=== PATIENT | male | born 1950 | race Caucasian/White ===

== ENCOUNTER 2016-03-05 07:47 | Day surgery (SDC) | payer BC ==
[~2016-03-05] VITALS: Ht 172.7 cm; Wt 61.4 kg
[2016-03-05 08:02] VITALS: BP 140/50; PULSE 64; RESP 20; TEMP 97.8; O2SAT 100
[2016-03-05] MEDS ORDERED: tumeric (08:37)
[2016-03-05] MEDS ORDERED: LUPR11.22 IM (08:37)
[2016-03-05] MEDS ORDERED: SIMV20TA PO (08:37)
[2016-03-05] MEDS ORDERED: MEGE20TA PO (08:37)
[2016-03-05] MEDS ORDERED: SILD20TA11 PO (08:37)
[2016-03-05] MEDS ORDERED: GARL1CAP (08:37)
[2016-03-05] MEDS ORDERED: BARLEY (08:37)
[2016-03-05] MEDS ORDERED: [UNRECOGNIZED DRUG - CODE] (08:37)
[2016-03-05] MEDS ORDERED: CRAN500C2 (08:37)
[2016-03-05] MEDS ORDERED: SODIUM CHLOR 0.9% 1000 ML IV SCH (09:15)
[2016-03-05] MEDS ORDERED: LIDOCAINE 1%/EPINEPHrine 1:100,000 SOLN 20 ML VIAL ONE (09:22)
[2016-03-05] MEDS ORDERED: fentaNYL CITRATE 250 MCG/5 ML AMP ONE (09:49)
[2016-03-05] MEDS ORDERED: MIDAZOLAM HCL 5 MG/5 ML VIAL ONE (09:49)
[2016-03-05 10:55] VITALS: BP 113/46; PULSE 55; RESP 18; TEMP 98; O2SAT 100
[2016-03-05 11:10] VITALS: BP 94/47; PULSE 59; RESP 16; O2SAT 99
[2016-03-05] MEDS ORDERED: oxyCODONE/ACETAMINOPHEN 5 MG/325 MG TAB PO PRN (11:30)
[2016-03-05 11:40] VITALS: BP 91/48; PULSE 60; RESP 18; O2SAT 98
[2016-03-05 12:10] VITALS: BP 100/52; PULSE 59; RESP 18; O2SAT 98
--- NOTE | 2016-03-05 12:15 | RADRPT ---
EXAM DATE/TIME: 03/05/2016 09:54 [facility] COMPARISON: No previous studies available for comparison. However, correlation was performed with outside PET bon e scan and pelvis MRI. INDICATIONS : Left ischial lesion. SEDATION TIME: 30 minutes BIOPSY SITE: Left ischium MEDICATION(S): 1.) 3.5 mg midazolam (Versed) IV 2.) 175 mcg fentanyl (Sublimaze) IV DEVICE(S): 1.) 12 gauge Bone biopsy needle MEDICAL HISTORY : None. SURGICAL HISTORY : None. ENCOUNTER: Initial ACUITY: 1 day PAIN SCORE: 0/10 LOCATION: Left pelvis A total of three core specimen(s) were obtained and sent to the laboratory for pathologic evaluation. PROCEDURE: 1. CT guided pelvic biopsy. 2. Conscious sedation with continuous EKG and oximetry monitoring. 3. EKG and oximetry remained stable throughout the procedure. Prior to the procedure informed consent was obtained. Any appropriate prior imaging studies were rev iewed. The left gluteal region was prepped in a sterile fashion. Full sterile technique was used, including cap, mask, sterile gloves and gown and a large sterile sheet. Hand hygiene and 2% chlorhexidine and /or betadine/alcohol prep was utilized per protocol for cutaneous antisepsis. The skin and subcutane ous tissues were infiltrated with local anesthetic solution. With CT guidance the sclerotic lesion in the left ischium was localized. Biopsy was performed using t he prescribed needle as above. Adequate hemostasis was obtained with compression at the puncture sit e. Follow-up CT scan reveals no hemorrhage or acute abnormality. There is a visible a lucent tract trave rsing the bone lesion. There is air in the adjacent soft tissue. The patient tolerated the procedure well and there were no complications. The patient was returned to the Radiology Outpatient Unit in stable condition. CONCLUSION: Uncomplicated CT guided biopsy of the left ischial sclerotic bone lesion. Fox Mcintyre MD on March 05, 2016 at 12:13 Board Certified Radiologist. This report was verified electronically.
[2016-03-05 12:40] VITALS: BP 106/55; PULSE 49; RESP 18; O2SAT 99
[2016-03-06] MEDS ORDERED: TURM500C PO (10:35)
[2016-04-24] MEDS ORDERED: ALPR.25 PO (09:29)
[2016-04-24] MEDS ORDERED: MEGE20TA PO (09:29)
[2016-04-24] MEDS ORDERED: SIMV20TA PO (09:29)
[2016-04-25] MEDS ORDERED: LUPR11.22 IM (06:47)
[2016-04-25] MEDS ORDERED: HYDR-3288 PO (09:43)
== END 2016-03-05 12:50 | disposition home or self-care (01) ==
LOC: MERGE 07:47 → HRAD 07:47 → HRIP 07:48 → EDSTATUS 08:00 → HRAD 12:50
PROVIDERS: ATTEND Radiology Radiation Oncology
DX: M89.8X8 Other specified disorders of bone, other site (principal)
CPT/HCPCS: 20225; 77012; 88307; 88311; 99152; J2250; J3010; J7030; 88305

== ENCOUNTER 2016-04-05 13:07 | Inpatient (IN) | payer BC ==
[~2016-04-05 13:07] MED LIST: BARLEY; CRAN500C2; GARL1CAP; LUPR11.22 IM; MEGE20TA PO; SILD20TA11 PO; SIMV20TA PO; TURM500C PO; [UNRECOGNIZED DRUG - CODE]
[2016-04-05 13:09] VITALS: BP 130/63; PULSE 57; RESP 25; TEMP 98.2; O2SAT 98
[2016-04-05 13:34] VITALS: O2SAT 100
[2016-04-05 13:44] LABS: I-STAT POTASSIUM 3.6 MMOL/L (3.5-4.9); I-STAT SODIUM 140 MMOL/L (138-146)
--- NOTE | 2016-04-05 13:44 | RADRPT ---
EXAM DATE/TIME: 04/05/2016 13:33 [facility] COMPARISON: No previous studies available for comparison. INDICATIONS : Trauma alert- fall from ladder. RADIATION DOSE: 56.35 CTDIvol (mGy) MEDICAL HISTORY : Unknown SURGICAL HISTORY : Unknown ENCOUNTER: Initial ACUITY: 1 day PAIN SCALE: 4/10 LOCATION: cranial TECHNIQUE: Multiple contiguous axial images were obtained of the head. Using automated exposure control and adj ustment of the mA and/or kV according to patient size, radiation dose was kept as low as reasonably a chievable to obtain optimal diagnostic quality images. FINDINGS: CEREBRUM: The ventricles are normal for age. No evidence of midline shift, mass lesion, hemorrhage or acute in farction. No extra-axial fluid collections are seen. POSTERIOR FOSSA: The cerebellum and brainstem are intact. The 4th ventricle is midline. The cerebellopontine angle i s unremarkable. EXTRACRANIAL: The visualized portion of the orbits is intact. SKULL: The calvaria is intact. No evidence of skull fracture. CONCLUSION: No acute disease. Karl Quinn MD FACR on April 05, 2016 at 13:42 Board Certified Radiologist. This report was verified electronically.
[2016-04-05 13:45] LABS: AUTOMATED NEUTROPHIL # 3.7 TH/MM3 (1.8-7.7); BASOPHIL # 0.1 TH/MM3 (0-0.2); BASOPHIL % 0.7 % (0.0-2.0); EOSINOPHIL # 0.4 TH/MM3 (0-0.4); HEMATOCRIT 40.1 % (39.0-51.0); HEMO FLAGS DIFF FINAL; LYMPH % 36.2 % (9.0-44.0); LYMPHOCYTE # 2.8 TH/MM3 (1.0-4.8); MEAN CELL VOLUME 94.5 FL (80.0-100.0); MEAN CORPUSCULAR HEMOGLOBIN 32.6 PG (27.0-34.0); MEAN CORPUSCULAR HGB CONC 34.5 % (32.0-36.0); MONO % 9.3 % (0.0-8.0); NEUT % 48.8 % (16.0-70.0); PLATELET COUNT 258 TH/MM3 (150-450); RED BLOOD COUNT 4.24 MIL/MM3 (4.50-5.90); RED CELL DISTRIBUTION WIDTH 12.6 % (11.6-17.2); WHITE BLOOD COUNT 7.6 TH/MM3 (4.0-11.0)
--- NOTE | 2016-04-05 13:47 | RADRPT ---
EXAM DATE/TIME: 04/05/2016 13:17 [facility] COMPARISON: No previous studies available for comparison. INDICATIONS : Trauma alert. Pain from fall off ladder. MEDICAL HISTORY : None. SURGICAL HISTORY : None. ENCOUNTER: Initial ACUITY: 1 day PAIN SCORE: 2/10 LOCATION: Bilateral chest FINDINGS: Granuloma seen in the right lung. Left lung is clear. There is no pneumothorax. I see no definite fracture. CONCLUSION: 1. Granuloma on the right. 2. Negative for pneumothorax. Karl Quinn MD FACR on April 05, 2016 at 13:41 Board Certified Radiologist. This report was verified electronically.
[2016-04-05 13:51] VITALS: BP 142/67; PULSE 47; RESP 16; O2SAT 98
[2016-04-05 13:58] LABS: APTT (PATIENT) 19.8 SEC (24.3-30.1); INTERNATIONAL NORMALIZED RATIO 0.9 RATIO; PROTHROMBIN TIME - PATIENT 10.2 SEC (9.8-11.6)
[2016-04-05] MEDS ORDERED: SODIUM CHLOR 0.9% 1000 ML INJ 1,000 ML IV ONE ×2 (14:00→14:15)
[2016-04-05] MEDS ORDERED: PROPOFOL 200 MG/20 ML AMP IV ONE (14:00)
[2016-04-05] MEDS ORDERED: PROPOFOL 1000 MG/100 ML INJ 100 ML ONE (14:02)
--- NOTE | 2016-04-05 14:16 | PD ---
Physical Exam Narrative I was asked by Dr. Payton to perform procedural sedation for closed reduction of right wrist fracture. See her note for further details. Data Data Last Documented VS Vital Signs Date Time Temp Pulse Resp B/P Pulse Ox O2 Delivery O2 Flow Rate FiO2 04/05/16 13:51 47 16 142/67 98 Room Air 04/05/16 13:34 2.00 04/05/16 13:09 98.2 Orders Fentanyl Inj (Fentanyl Inj) (04/05/16 13:26) I-Stat Profile (04/05/16 13:32) I-Stat Creatinine (04/05/16 13:32) Complete Blood Count With Diff (04/05/16 13:32) Prothrombin Time / Inr (Pt) (04/05/16 13:32) Act Partial Throm Time (Ptt) (04/05/16 13:32) Type And Screen (04/05/16 13:32) Chest, Single Ap (04/05/16 13:32) Pelvis, Ap Only (Routine) (04/05/16 13:32) Ct Brain W/O Iv Contrast(Rout) (04/05/16 13:32) Ct Cerv Spine W/O Contrast (04/05/16 13:32) Iv Access Insert/Monitor (04/05/16 13:32) Ecg Monitoring (04/05/16 13:32) Oximetry (04/05/16 13:32) Oxygen Administration (04/05/16 13:32) Wrist, Limited (Ap&Lat) (04/05/16 ) Propofol 200 Mg/20 Ml Inj (Diprivan 200 (04/05/16 14:00) Sodium Chlor 0.9% 1000 Ml Inj (Ns 1000 M (04/05/16 14:00) Fentanyl Inj (Fentanyl Inj) (04/05/16 14:15) Propofol 1000 Mg/100 Ml Inj (Diprivan 10 (04/05/16 14:02) Sodium Chlor 0.9% 1000 Ml Inj (Ns 1000 M (04/05/16 14:15) Labs Laboratory Tests Test 04/05/16 13:35 White Blood Count 7.6 TH/MM3 Red Blood Count 4.24 MIL/MM3 Hemoglobin 13.8 GM/DL Bedside Hemoglobin 13.6 G/DL Hematocrit 40.1 % Bedside Hematocrit 40.0 % Mean Corpuscular Volume 94.5 FL Mean Corpuscular Hemoglobin 32.6 PG Mean Corpuscular Hemoglobin 34.5 % Concent Red Cell Distribution Width 12.6 % Platelet Count 258 TH/MM3 Mean Platelet Volume 8.5 FL Neutrophils (%) (Auto) 48.8 % Lymphocytes (%) (Auto) 36.2 % Monocytes (%) (Auto) 9.3 % Eosinophils (%) (Auto) 5.0 % Basophils (%) (Auto) 0.7 % Neutrophils # (Auto) 3.7 TH/MM3 Lymphocytes # (Auto) 2.8 TH/MM3 Monocytes # (Auto) 0.7 TH/MM3 Eosinophils # (Auto) 0.4 TH/MM3 Basophils # (Auto) 0.1 TH/MM3 CBC Comment DIFF FINAL Differential Comment Prothrombin Time 10.2 SEC Prothromb Time International 0.9 RATIO Ratio Activated Partial 19.8 SEC Thromboplast Time Bedside Sodium 140 MMOL/L Bedside Potassium 3.6 MMOL/L Bedside Chloride 103 MMOL/L Bedside Blood Urea Nitrogen 15 MG/DL Bedside Creatinine LESS THAN 0.2 MG/DL Bedside Glucose 122 MG/DL MDM Supervised Visit with BHAVESH: No Procedures Procedure Narrative Procedural sedation for closed reduction of right wrist fracture: After the risks and benefits were discussed the following procedure was performed: MODERATE SEDATION: The patient was placed on a cardiac/vascular sonographer and pulse oximetry. An ambu bag and suction was immediately available at bedside. The patient was monitored by the nurse. Oxygen saturation , heart rate and blood pressure were monitored. Procedural sedation was acheived using 100 mg of IV propofol. The patient was observed until awake and alert. Procedural Sedation time in attendance was 20 minutes. Isaac Wells MD Apr 05, 2016 14:16
--- NOTE | 2016-04-05 14:34 | PD ---
HPI Chief Complaint: Fall Time Seen by Provider: 13:32 Travel History International Travel<30 days: No Contact w/Intl Traveler<30days: No Traveled to known affect area: No History of Present Illness HPI Patient is a 65-year-old male who presents to emergency room after he fell from a 12 foot ladder onto the ground, patient denies loss of consciousness on scene. Patient reports that when he fell, he is unsure what he hit or where he fell onto. Patient reports that he has increased pain to his right wrist as well as his left hip. Patient reports that he is not on any anticoagulants at this time. Patient denies chest pain or shortness of breath. Patient denies abdominal pain. Patient reports that he is able to move all of his extremities without any difficulties. PFSH Past Medical History Cancer: Yes (prostate cancer) Past Surgical History Prostatectomy: Yes Social History Alcohol Use: No Substance Use: No Allergies-Medications (Allergen,Severity, Reaction): Coded Allergies: Penicillin (Verified Allergy, Unknown, 04/05/16) Review of Systems General / Constitutional: No: Fever Eyes: No: Visual changes HENT: No: Headaches Cardiovascular: No: Chest Pain or Discomfort Respiratory: No: Shortness of Breath Gastrointestinal: No: Abdominal Pain Genitourinary: No: Dysuria Musculoskeletal: Positive: Limited ROM (right wrist), Pain (wrist pain) Skin: No Rash Neurologic: No: Weakness Psychiatric: No: Depression Endocrine: No: Polydipsia Hematologic/Lymphatic: No: Easy Bruising Physical Exam Narrative GENERAL: Moderate distress SKIN: Warm and dry. HEAD: Atraumatic. Normocephalic. EYES: Pupils equal and round. No scleral icterus. No injection or drainage. ENT: No nasal bleeding or discharge. Mucous membranes pink and moist. NECK: Trachea midline. No JVD. Patient in c-spine precautions CARDIOVASCULAR: Regular rate and rhythm. No murmur appreciated. RESPIRATORY: No accessory muscle use. Clear to auscultation. Breath sounds equal bilaterally. GASTROINTESTINAL: Abdomen soft, non-tender, nondistended. Hepatic and splenic margins not palpable. MUSCULOSKELETAL: pt with right wrist deformity - no open fx, pulses intact. NEUROLOGICAL: Awake and alert. No obvious cranial nerve deficits. Motor grossly within normal limits. Normal speech. PSYCHIATRIC: Appropriate mood and affect; insight and judgment normal. Data Data Last Documented VS Vital Signs Date Time Temp Pulse Resp B/P Pulse Ox O2 Delivery O2 Flow Rate FiO2 04/05/16 13:51 47 16 142/67 98 Room Air 04/05/16 13:34 2.00 04/05/16 13:09 98.2 Orders Fentanyl Inj (Fentanyl Inj) (04/05/16 13:26) I-Stat Profile (04/05/16 13:32) I-Stat Creatinine (04/05/16 13:32) Complete Blood Count With Diff (04/05/16 13:32) Prothrombin Time / Inr (Pt) (04/05/16 13:32) Act Partial Throm Time (Ptt) (04/05/16 13:32) Type And Screen (04/05/16 13:32) Chest, Single Ap (04/05/16 13:32) Pelvis, Ap Only (Routine) (04/05/16 13:32) Ct Brain W/O Iv Contrast(Rout) (04/05/16 13:32) Ct Cerv Spine W/O Contrast (04/05/16 13:32) Iv Access Insert/Monitor (04/05/16 13:32) Ecg Monitoring (04/05/16 13:32) Oximetry (04/05/16 13:32) Oxygen Administration (04/05/16 13:32) Wrist, Limited (Ap&Lat) (04/05/16 ) Propofol 200 Mg/20 Ml Inj (Diprivan 200 (04/05/16 14:00) Sodium Chlor 0.9% 1000 Ml Inj (Ns 1000 M (04/05/16 14:00) Fentanyl Inj (Fentanyl Inj) (04/05/16 14:15) Propofol 1000 Mg/100 Ml Inj (Diprivan 10 (04/05/16 14:02) Sodium Chlor 0.9% 1000 Ml Inj (Ns 1000 M (04/05/16 14:15) Chest, Single Ap (04/05/16 ) Wrist, Complete ([id number]) (04/05/16 ) Trauma Office Use Only (04/05/16 14:28) Ct Thorax/ Chest W Iv Contrast (04/05/16 14:43) Hip, Uni(Ap&Lat) Wo Ap Pelvis (04/05/16 ) Ct Abd/Pel W Iv Contrast(Rout) (04/05/16 15:01) Wrist, Limited (Ap&Lat) (04/05/16 ) Iohexol 350 Inj (Omnipaque 350 Inj) (04/05/16 15:05) Fiberglass Sugartong Sp Ad Arm (04/05/16 ) Sling Cradle Arm (04/05/16 ) Collar [place] (04/05/16 ) Consult Orthopedic (04/05/16 ) Admit Order (Ed Use Only) (04/05/16 15:54) Labs Laboratory Tests Test 04/05/16 13:35 White Blood Count 7.6 TH/MM3 Red Blood Count 4.24 MIL/MM3 Hemoglobin 13.8 GM/DL Bedside Hemoglobin 13.6 G/DL Hematocrit 40.1 % Bedside Hematocrit 40.0 % Mean Corpuscular Volume 94.5 FL Mean Corpuscular Hemoglobin 32.6 PG Mean Corpuscular Hemoglobin 34.5 % Concent Red Cell Distribution Width 12.6 % Platelet Count 258 TH/MM3 Mean Platelet Volume 8.5 FL Neutrophils (%) (Auto) 48.8 % Lymphocytes (%) (Auto) 36.2 % Monocytes (%) (Auto) 9.3 % Eosinophils (%) (Auto) 5.0 % Basophils (%) (Auto) 0.7 % Neutrophils # (Auto) 3.7 TH/MM3 Lymphocytes # (Auto) 2.8 TH/MM3 Monocytes # (Auto) 0.7 TH/MM3 Eosinophils # (Auto) 0.4 TH/MM3 Basophils # (Auto) 0.1 TH/MM3 CBC Comment DIFF FINAL Differential Comment Prothrombin Time 10.2 SEC Prothromb Time International 0.9 RATIO Ratio Activated Partial 19.8 SEC Thromboplast Time Bedside Sodium 140 MMOL/L Bedside Potassium 3.6 MMOL/L Bedside Chloride 103 MMOL/L Bedside Blood Urea Nitrogen 15 MG/DL Bedside Creatinine LESS THAN 0.2 MG/DL Bedside Glucose 122 MG/DL Blood Type A POSITIVE Antibody Screen NEGATIVE MDM Medical Screen Exam Complete: Yes Emergency Medical Condition: Yes Interpretation(s) Vital Signs Date Time Temp Pulse Resp B/P Pulse Ox O2 Delivery O2 Flow Rate FiO2 04/05/16 13:51 47 16 142/67 98 Room Air 04/05/16 13:34 100 2.00 04/05/16 13:09 98.2 57 25 130/63 98 Differential Diagnosis intracranial hemorrhage, rib fracture, wrist fx, pelvic fx, hip fx, Narrative Course Patient is a 65-year-old male who presents to emergency room after he fell off a 12 foot ladder. Patient with no loss of consciousness on scene, patient reports that he was able to ambulate after fall. Trauma alert was called upon patient's arrival to ER. ATLS protocol initiated in trauma bay Patient with obvious deformity to right wrist, patient with pain to the left side of his chest. Patient with no open deformities or fractures, patient with no midline tenderness to C-spine, T-spine or L-spine. Patient with left-sided chest pain, no abdominal pain. Patient moving all extremities without any difficulty, patient does have pain to his left hip. X-ray of hip ordered. Patient was seen by Dr. Brown with trauma surgery. CT of the chest abdomen pelvis was reviewed, patient with multiple fractures including rib fracture and left acetabular fracture. Call made to Dr. Chauhan, will see patient in consult call made to Dr. Brown, will admit patient to his service. Critical Care Narrative Aggregate critical care time was 30 minutes. Time to perform other separately billable procedures was not included in the critical care time. My time did not include minutes spent treating any other patients simultaneously or on activities that did not directly contribute to the patient's treatment. The services I provided to this patient were to treat and/or prevent clinically significant deterioration that could result in: , decompensation, deterioration I provided critical care services requiring my management, as noted below: Chart data review, documentation time, medication orders and management, vital sign assessments/reviewing monitor data, ordering and reviewing lab tests, ordering and interpreting/reviewing x-rays and diagnostic studies, care of the patient and discussion of the patient with the admitting physicians. Procedures Procedure Narrative Right Distal Radius Fracture Reduction After the risks and benefits were discussed with patient for reduction of right distal radius fracture, patient gave written consent for conscious sedation as well as for reduction of right wrist fracture. Moderate sedation was performed by Dr. Wells. Patient was placed on pvc monitor as well as pulse oximetry. After patient was sedated, traction and counter traction was placed to the right wrist, xray obtained after reduction. Patient tolerated procedure well. Diagnosis Diagnosis: Primary Impression: Nondisplaced fracture of left acetabulum Additional Impressions: right distal radius fx Ribs, multiple fractures Fracture of iliac crest Admitting Physician Requests: Admit Shelli Payton DO Apr 05, 2016 14:34
--- NOTE | 2016-04-05 14:39 | RADRPT ---
EXAM DATE/TIME: 04/05/2016 13:34 [facility] COMPARISON: No previous studies available for comparison. INDICATIONS : Trauma alert, fall from ladder. RADIATION DOSE: 34.49 CTDIvol (mGy) MEDICAL HISTORY : Unknown SURGICAL HISTORY : Unknown ENCOUNTER: Initial ACUITY: 1 day PAIN SCALE: 5/10 LOCATION: Neck TECHNIQUE: Volumetric scanning of the cervical spine was performed. Multiplanar reconstructions in the sagittal, coronal and oblique axial planes were performed. Using automated exposure control and adjustment o f the mA and/or kV according to patient size, radiation dose was kept as low as reasonably achievable to obtain optimal diagnostic quality images. FINDINGS: There is disc space narrowing at C3-4, C4-5 and C5-6. Moderate left neural foraminal narrowing is no ahsan at C3-4 and mild to moderate bilateral foraminal narrowing is noted at C4-5. There is no acute f racture or prevertebral soft tissue swelling. The bony relationship and alignment with between C1 an d C2 is well maintained. Mild diffuse disc osteophyte complexes are noted at C3-4, C4-5 and to a les ser extent C5-6. CONCLUSION: 1. No acute fracture or prevertebral soft tissue swelling. 2. Cervical spondylosis at C3-4, C4-5, and C5-6. 3. Moderate left neural foraminal narrowing at C3-4 and mild to moderate bilateral foraminal narrowin g at C4-5. 4. Mild diffuse disc osteophyte complexes at C3-4 and C4-5 and to a lesser extent at C5-6. Donald Bledsoe MD on April 05, 2016 at 14:24 Board Certified Radiologist. This report was verified electronically.
--- NOTE | 2016-04-05 14:42 | RADRPT ---
EXAM DATE/TIME: 04/05/2016 13:17 [facility] COMPARISON: No previous studies available for comparison. INDICATIONS : Pain from fall off of ladder. MEDICAL HISTORY : None. SURGICAL HISTORY : None. ENCOUNTER: Initial ACUITY: 1 day PAIN SCORE: 7/10 LOCATION: Left pelvis FINDINGS: A single frontal view of the pelvis demonstrates no evidence of fracture. The bony pelvic ring is in tact. Bony mineralization is normal. The soft tissues are intact. CONCLUSION: No acute disease. Donald Bledsoe MD on April 05, 2016 at 14:41 Board Certified Radiologist. This report was verified electronically.
[2016-04-05] MEDS ORDERED: IOHEXOL 350 MG/ML 10 ML VIAL (for RAD DIAG) IV ONE (15:05)
--- NOTE | 2016-04-05 15:12 | RADRPT ---
EXAM DATE/TIME: 04/05/2016 13:17 [facility] COMPARISON: No previous studies available for comparison. INDICATIONS: Trauma alert. Pain from fall off of a ladder. MEDICAL HISTORY: None. SURGICAL HISTORY: None. ENCOUNTER: Initial ACUITY: 1 day PAIN SCORE: 10/10 LOCATION: Right wrist. FINDINGS: There is an acute displaced fracture involving the right distal radius. CONCLUSION: Acute displaced fracture involving the right distal radius. Donald Bledsoe MD on April 05, 2016 at 14:41 Board Certified Radiologist. This report was verified electronically.
--- NOTE | 2016-04-05 15:31 | RADRPT ---
EXAM DATE/TIME: 04/05/2016 14:16 [facility] COMPARISON: No previous studies available for comparison. INDICATIONS : Post reduction. MEDICAL HISTORY: None. SURGICAL HISTORY: None. ENCOUNTER: Initial ACUITY: 1 day PAIN SCORE: 10/10 LOCATION: Right wrist. FINDINGS: There has been closed reduction of the right distal fracture with the bones appearing to be adequatel y aligned. A cast overlies the right wrist. CONCLUSION: 1. Status post closed reduction of comminuted fracture of the right distal radius with good alignmen t of fracture fragments status post reduction. Donald Bledsoe MD on April 05, 2016 at 15:22 Board Certified Radiologist. This report was verified electronically.
--- NOTE | 2016-04-05 15:35 | RADRPT ---
EXAM DATE/TIME: 04/05/2016 15:03 [facility] COMPARISON: No previous studies available for comparison. INDICATIONS : Left rib and left hip pain after fall from ladder today. IV CONTRAST: 67 cc Omnipaque 350 (iohexol) IV ; Cumulative dose for multiple exams. ORAL CONTRAST: No oral contrast ingested. RADIATION DOSE: 8.72 CTDIvol (mGy) ; Combined studies - Thorax/Abdomen/Pelvis MEDICAL HISTORY : Carcinoma, prostate. SURGICAL HISTORY : Prostatectomy. ENCOUNTER: Initial ACUITY: 1 day PAIN SCALE: 6/10 LOCATION: Left Abomen/pelvis TECHNIQUE: Volumetric scanning of the abdomen and pelvis was performed. Using automated exposure control and ad justment of the mA and/or kV according to patient size, radiation dose was kept as low as reasonably achievable to obtain optimal diagnostic quality images. FINDINGS: LOWER LUNGS: The visualized lower lungs are clear. LIVER: Homogeneous density without lesion. There is no dilation of the biliary tree. No calcified gallston es. SPLEEN: Normal size without lesion. PANCREAS: Within normal limits. KIDNEYS: Normal in size and shape. There is no mass, stone or hydronephrosis. ADRENAL GLANDS: Within normal limits. VASCULAR: There is no aortic aneurysm. BOWEL/MESENTERY: The stomach, small bowel, and colon demonstrate no acute abnormality. There is no free intraperitone al air or fluid. ABDOMINAL WALL: Within normal limits. RETROPERITONEUM: There is no lymphadenopathy. BLADDER: The urinary bladder is markedly distended and its wall is minimally thickened. REPRODUCTIVE: Within normal limits. INGUINAL: There is no lymphadenopathy or hernia. MUSCULOSKELETAL: There are acute fractures of the lateral aspects of left fifth and sixth ribs. There is also an acute fracture of the anterior aspect of the left acetabulum involving the anterior column which is nondis placed. There is also an acute nondisplaced fracture involving the left medial iliac crest. Degenerat jesus changes and scoliosis of the thoracolumbar spine are noted. CONCLUSION: 1. There are acute fractures of the lateral aspects of left fifth and sixth ribs. There is also an ac kat fracture of the anterior aspect of the left acetabulum involving the anterior column which is non displaced. There is also an acute nondisplaced fracture involving the left medial iliac crest. 2. Markedly distended urinary bladder with some wall thickening. 3. Degenerative changes and scoliosis of the thoraco-lumbar spine. Donald Bledsoe MD on April 05, 2016 at 15:25 Board Certified Radiologist. This report was verified electronically.
--- NOTE | 2016-04-05 15:38 | RADRPT ---
EXAM DATE/TIME: 04/05/2016 15:12 [facility] COMPARISON: CT ABDOMEN & PELVIS W CONTRAST, April 05, 2016, 15:03. INDICATIONS : Patient fell 12 feet from ladder. Complains of left hip pain. MEDICAL HISTORY : None. SURGICAL HISTORY : None. ENCOUNTER: Initial ACUITY: 1 day PAIN SCORE: 4/10 LOCATION: Left Hip FINDINGS: There is a nondisplaced fracture of the left acetabulum. Femoral head is non-dislocated. The joint sp lorelei is maintained. Bony mineralization is normal. CONCLUSION: 1. Non-displaced left acetabulum fracture Gabe Medina MD on April 05, 2016 at 15:35 Board Certified Radiologist. This report was verified electronically.
--- NOTE | 2016-04-05 15:42 | RADRPT ---
EXAM DATE/TIME: 04/05/2016 15:03 [facility] COMPARISON: No previous studies available for comparison. INDICATIONS : Left rib and left hip pain after fall from ladder today. IV CONTRAST: 67 cc Omnipaque 350 (iohexol) IV ; Cumulative dose for multiple exams. RADIATION DOSE: 8.72 CTDIvol (mGy) ; Combined studies - Thorax/Abdomen/Pelvis MEDICAL HISTORY : Carcinoma, prostate. SURGICAL HISTORY : Prostatectomy. ENCOUNTER: Initial ACUITY: 1 day PAIN SCALE: 4/10 LOCATION: Left chest TECHNIQUE: Volumetric scanning of the chest was performed. Using automated exposure control and adjustment of t he mA and/or kV according to patient size, radiation dose was kept as low as reasonably achievable to obtain optimal diagnostic quality images. FINDINGS: LUNGS: Isolated 6 mm granulomatous type calcification in the right middle lobe. Lungs otherwise clear. PLEURA: There is no pleural thickening or pleural effusion. MEDIASTINUM: The heart and great vessels demonstrate no acute abnormality. There is no mediastinal or hilar lymph adenopathy. AXILLAE: Within normal limits. No lymphadenopathy. SKELETAL: Within normal limits for patient age. MISCELLANEOUS: The visualized upper abdominal organs demonstrate no acute abnormality. CONCLUSION: 1. Granulomatous type calcification in the right middle lobe. 2. Otherwise negative. Jung Asher MD on April 05, 2016 at 15:36 Board Certified Radiologist. This report was verified electronically.
--- NOTE | 2016-04-05 15:46 | RADRPT ---
EXAM DATE/TIME: 04/05/2016 14:14 [facility] COMPARISON: CHEST SINGLE AP, April 05, 2016, 13:17. INDICATIONS : Pain from fall off of a ladder. MEDICAL HISTORY : None. SURGICAL HISTORY : None. ENCOUNTER: Initial ACUITY: 1 day PAIN SCORE: 2/10 LOCATION: Bilateral chest FINDINGS: A single view of the chest demonstrates the lungs to be symmetrically aerated with a stable granuloma tous type calcification in the right lower lung field. Faint density laterally in the right apex like ly represents an EKG pad that was not removed prior to the radiographic image. No effusions. Heart si ze is normal. Degenerative spurring in the dorsal spine. Osseous structures are otherwise intact with some degenerative spurring of the dorsal spine. CONCLUSION: 1. Granulomatous type calcification in the right lateral lower lung field. 2. Probable EKG pad laterally over the right upper lung. 3. Lungs are otherwise clear. No fracture or pneumothorax. Jung Asher MD on April 05, 2016 at 15:41 Board Certified Radiologist. This report was verified electronically.
[2016-04-05] MEDS ORDERED: CHLORHEXIDINE GLUCONATE 2 % 1 PACK (2 CLOTHS) TOP PRN (16:00)
[2016-04-05] MEDS ORDERED: MISCELLANEOUS NURSING INFORMATION XX SCH (16:00)
[2016-04-05] MEDS ORDERED: SODIUM CHLORIDE 0.9% FLUSH 5 ML FLUSH IVF PRN (16:00)
[2016-04-05 16:51] VITALS: BP 118/63; PULSE 73; RESP 16; O2SAT 99
[2016-04-05] MEDS: SODIUM CHLOR 0.9% 1000 ML INJ 1,000 ML IV SCH (16:52)
[2016-04-05] MEDS: PANTOPRAZOLE SODIUM 40 MG VIAL IVP SCH (16:52)
[2016-04-05] MEDS ORDERED: ENALAPRILAT 1.25 MG/ML VIAL IV PRN (17:00)
[2016-04-05] MEDS ORDERED: ACETAMINOPHEN/HYDROcodone 325 MG/5 MG TAB PO PRN (17:00)
[2016-04-05] MEDS ORDERED: ONDANSETRON HCL 4 MG/2 ML VIAL IV PRN (17:00)
[2016-04-05] MEDS ORDERED: HYDROmorphone HCL PF 1 MG/ML VIAL IVP PRN (17:00)
[2016-04-05] MEDS ORDERED: MORPHINE SULFATE 4 MG/ML INJ IV PUSH ONE (17:15)
[2016-04-05 18:00] VITALS: BP 127/60; PULSE 54; RESP 16; O2SAT 96
[2016-04-05 18:40] VITALS: BP 118/66; PULSE 58; RESP 18; TEMP 97.7; O2SAT 98
--- NOTE | 2016-04-05 19:26 | PD.CONS ---
cc: Terrell Chauhan MD [facility] Service Orthopedic Surgeons Consult Requested By Trauma service Reason for Consult Evaluation of right wrist and pelvic fractures Primary Care Physician Cabrera Watkins M.D. Admission Diagnosis TRAUMA, wrist fx, rib fx, acetabular fx Diagnoses: (1) Nondisplaced fracture of left acetabulum (2) Ribs, multiple fractures (3) Fracture of distal end of right radius (4) Fracture of iliac crest Chief Complaint: Right wrist, left hip, left rib pain History of Present Illness HPI Patient is a 65-year-old male who presents to emergency room after he fell from a 12 foot ladder onto the ground, patient denies loss of consciousness on scene. Patient reports that when he fell, he is unsure what he hit or where he fell onto. Patient reports that he has increased pain to his right wrist as well as his left hip. Patient reports that he is not on any anticoagulants at this time. Patient denies chest pain or shortness of breath. Patient denies abdominal pain. Patient reports that he is able to move all of his extremities except for the right wrist. X-rays did reveal a displaced right distal radius fracture as well as nondisplaced fractures involving his left acetabulum and iliac crest. The patient underwent a closed reduction of the wrist in the emergency department with overall good alignment noted postreduction. The patient is awake and alert and family is at the bedside. He has no other extremity complaints. Review of Systems Reviewed and well outlined in the chart. Past Family Social History Past Medical History PFSH Past Medical History Cancer: Yes (prostate cancer) Past Surgical History Prostatectomy: Yes Social History Alcohol Use: No Substance Use: No Allergies: Coded Allergies: Penicillin (Verified Allergy, Unknown, 04/05/16) Active Ordered Medications Current Medications Medications (Trade) Dose Ordered Sig/Boby Route Start Time Stop Time Status Last Admin (NS 1000 ml Inj) 1,000 ml @ 100 mls/hr Q10H IV 04/05/16 15:57 04/05/16 16:52 (NS Flush) 2 ml UNSCH PRN IVF 04/05/16 16:00 (Dilaudid Pf Inj) 1 mg Q1H PRN IVP 04/05/16 17:00 ([place]over 5-325 Mg) 1 tab Q4H PRN PO 04/05/16 17:00 ([place]over 5-325 Mg) 2 tab Q4H PRN PO 04/05/16 17:00 (Vasotec Inj) 1.25 mg Q8HR PRN IV 04/05/16 17:00 (Zofran Inj) 4 mg Q6H PRN IV 04/05/16 17:00 (Protonix Inj) 40 mg Q24H IVP 04/05/16 16:00 04/05/16 16:52 (Baciguent Oint) 1 applic BID TOP 04/05/16 21:00 (Colace) 100 mg BID PO 04/05/16 21:00 Miscellaneous Information 1 Q361D XX 04/05/16 16:00 (Chlorhexidine 2% Cloth) 3 pack Taper DAILY@04 TOP 04/06/16 04:00 04/02/17 03:59 (Chlorhexidine 2% Cloth) 3 pack UNSCH PRN TOP 04/05/16 16:00 Physical Exam Vital Signs Vital Signs Date Time Temp Pulse Resp B/P Pulse Ox O2 Delivery O2 Flow Rate FiO2 04/05/16 18:00 54 16 127/60 96 Room Air 04/05/16 17:10 5 18 98 Room Air 04/05/16 16:51 73 16 118/63 99 Room Air 04/05/16 13:51 47 16 142/67 98 Room Air 04/05/16 13:34 100 2.00 04/05/16 13:09 98.2 57 25 130/63 98 Physical Exam The right upper extremity is in a long-arm splint. This was left intact. He has mild swelling of the fingers. He is able to move the fingers without pain. He has good capillary refill and sensation. The patient does have mild discomfort with passive mobility of the left hip. The limb lengths are equal. He moves his toes and ankle freely and has good capillary refill and sensation. There are no other localizing signs of extremity injury. Laboratory Laboratory Tests Test 04/05/16 13:35 White Blood Count 7.6 Red Blood Count 4.24 Hemoglobin 13.8 Bedside Hemoglobin 13.6 Hematocrit 40.1 Bedside Hematocrit 40.0 Mean Corpuscular Volume 94.5 Mean Corpuscular Hemoglobin 32.6 Mean Corpuscular Hemoglobin 34.5 Concent Red Cell Distribution Width 12.6 Platelet Count 258 Mean Platelet Volume 8.5 Neutrophils (%) (Auto) 48.8 Lymphocytes (%) (Auto) 36.2 Monocytes (%) (Auto) 9.3 Eosinophils (%) (Auto) 5.0 Basophils (%) (Auto) 0.7 Neutrophils # (Auto) 3.7 Lymphocytes # (Auto) 2.8 Monocytes # (Auto) 0.7 Eosinophils # (Auto) 0.4 Basophils # (Auto) 0.1 CBC Comment DIFF FINAL Differential Comment Prothrombin Time 10.2 Prothromb Time International 0.9 Ratio Activated Partial 19.8 Thromboplast Time Bedside Sodium 140 Bedside Potassium 3.6 Bedside Chloride 103 Bedside Blood Urea Nitrogen 15 Bedside Creatinine LESS THAN 0.2 Bedside Glucose 122 Blood Type A POSITIVE Antibody Screen NEGATIVE Result Diagram: 04/05/16 1335 Imaging Last 48 hours Impressions Abdomen/Pelvis CT 04/05/16 1501 Signed Impressions: Service Date/Time: Tuesday, April 05, 2016 15:03 - CONCLUSION: 1. There are acute fractures of the lateral aspects of left fifth and sixth ribs. There is also an acute fracture of the anterior aspect of the left acetabulum involving the anterior column which is nondisplaced. There is also an acute nondisplaced fracture involving the left medial iliac crest. 2. Markedly distended urinary bladder with some wall thickening. 3. Degenerative changes and scoliosis of the thoraco-lumbar spine. Donald Bledsoe MD Chest CT 04/05/16 1443 Signed Impressions: Service Date/Time: Tuesday, April 05, 2016 15:03 - CONCLUSION: 1. Granulomatous type calcification in the right middle lobe. 2. Otherwise negative. Jung Asher MD Pelvis X-Ray 04/05/16 1332 Signed Impressions: Service Date/Time: Tuesday, April 05, 2016 13:17 - CONCLUSION: No acute disease. Donald Bledsoe MD Head CT 04/05/16 133 Signed Impressions: Service Date/Time: Tuesday, April 05, 2016 13:33 - CONCLUSION: No acute disease. Karl Quinn MD FACR Chest X-Ray 04/05/16 1332 Signed Impressions: Service Date/Time: Tuesday, April 05, 2016 13:17 - CONCLUSION: 1. Granuloma on the right. 2. Negative for pneumothorax. Karl Quinn MD FACR Hip X-Ray 04/05/16 0000 Signed Impressions: Service Date/Time: Tuesday, April 05, 2016 15:12 - CONCLUSION: 1. Non-displaced left acetabulum fracture Gabe Medina MD Chest X-Ray 04/05/16 0000 Signed Impressions: Service Date/Time: Tuesday, April 05, 2016 14:14 - CONCLUSION: 1. Granulomatous type calcification in the right lateral lower lung field. 2. Probable EKG pad laterally over the right upper lung. 3. Lungs are otherwise clear. No fracture or pneumothorax. Jung Asher MD Assessment & Plan Problem List: (1) Fracture of distal end of right radius (2) Nondisplaced fracture of left acetabulum (3) Fracture of iliac crest (4) Ribs, multiple fractures Assessment and Plan The findings were discussed with the patient and his family. The patient obtained a good result from the closed reduction and therefore recommendations are for nonoperative management at the present time. In addition, he has nonoperative injuries involving his pelvis. He can mobilize to tolerance with a platform walker and physical therapy will be consulted. He can be discharged from an orthopedic standpoint when medically stable and his pain is controlled. He will follow with the undersigned in approximately 7-10 days. The patient and his family acknowledged full understanding of the plan of treatment and the nature of his problem and agree to it. Terrell Chauhan MD Apr 05, 2016 19:26
[2016-04-05] MEDS: DOCUSATE SODIUM 100 MG CAP PO SCH (20:56)
[2016-04-05] MEDS: ACETAMINOPHEN/HYDROcodone 325 MG/5 MG TAB PO PRN (20:56)
[2016-04-05] MEDS: BACITRACIN TOP OINT 15 GM TUBE TOP SCH (20:58)
[2016-04-06] VITALS (7 sets, daily range): BP systolic 103–127; BP diastolic 51–71; PULSE 51–62; RESP 17–18; TEMP 96.1–98.6; O2SAT 97–100
[2016-04-06] MEDS: ACETAMINOPHEN/HYDROcodone 325 MG/5 MG TAB PO PRN ×4 (00:55→17:45)
[2016-04-06] MEDS: SODIUM CHLOR 0.9% 1000 ML INJ 1,000 ML IV SCH (00:57)
[2016-04-06] MEDS ORDERED: CHLORHEXIDINE GLUCONATE 2 % 1 PACK (2 CLOTHS) TOP SCH (04:00)
[2016-04-06 07:11] LABS: AUTOMATED NEUTROPHIL # 4.8 TH/MM3 (1.8-7.7); BASOPHIL % 0.3 % (0.0-2.0); EOSINOPHIL # 0.2 TH/MM3 (0-0.4); EOSINOPHIL % 3.1 % (0.0-4.0); HEMO FLAGS DIFF FINAL; LYMPH % 20.2 % (9.0-44.0); LYMPHOCYTE # 1.6 TH/MM3 (1.0-4.8); MEAN CELL VOLUME 94.4 FL (80.0-100.0); MEAN CORPUSCULAR HEMOGLOBIN 33.4 PG (27.0-34.0); MEAN CORPUSCULAR HGB CONC 35.4 % (32.0-36.0); MONO % 13.8 % (0.0-8.0); NEUT % 62.6 % (16.0-70.0); PLATELET COUNT 175 TH/MM3 (150-450); RED BLOOD COUNT 3.81 MIL/MM3 (4.50-5.90); RED CELL DISTRIBUTION WIDTH 13.2 % (11.6-17.2); WHITE BLOOD COUNT 7.7 TH/MM3 (4.0-11.0)
[2016-04-06 07:34] LABS: BICARBONATE 24.1 MEQ/L (21.0-32.0); POTASSIUM 3.5 MEQ/L (3.5-5.1)
--- NOTE | 2016-04-06 07:58 | RADRPT ---
EXAM DATE/TIME: 04/06/2016 07:44 [facility] COMPARISON: CHEST SINGLE AP, April 05, 2016, 14:14. INDICATIONS : Trauma to chest from fall yesterday MEDICAL HISTORY : None. SURGICAL HISTORY : None. ENCOUNTER: Subsequent ACUITY: 1 day PAIN SCORE: 2/10 LOCATION: Bilateral chest FINDINGS: A single view of the chest demonstrates the lungs to be symmetrically aerated without evidence of mas s, infiltrate or effusion. Calcified granuloma right lower lobe. The cardiomediastinal contours are u nremarkable. Osseous structures are intact. CONCLUSION: No acute disease. Eric Chase MD on April 06, 2016 at 7:55 Board Certified Radiologist. This report was verified electronically.
[2016-04-06] MEDS: DOCUSATE SODIUM 100 MG CAP PO SCH (08:13)
[2016-04-06] MEDS ORDERED: LACTULOSE SYRUP 20 GM/30 ML CUP PO ONE (09:00)
[2016-04-06] MEDS: DOCUSATE SODIUM 50 MG/SENNA 8.6 MG TAB PO SCH ×2 (09:00→21:59)
[2016-04-06] MEDS: BACITRACIN TOP OINT 15 GM TUBE TOP SCH (09:00)
[2016-04-06] MEDS ORDERED: WALKER WHEELS/F1 MIS (11:59)
[2016-04-06] MEDS ORDERED: WHEEMIS3 (11:59)
[2016-04-06] MEDS ORDERED: PLATMIS3 (11:59)
--- NOTE | 2016-04-06 12:03 | HHI.FF ---
Face to Face Verification Diagnosis: (1) Fracture of iliac crest (2) Nondisplaced fracture of left acetabulum (3) Ribs, multiple fractures (4) Fracture of distal end of right radius Physical Therapy Order: Evaluate and Treat, Improve ambulation, Strength and gait training Home Health Nursing Order: Nursing assessment with vital signs I have seen patient Yemi Vaca on 04/06/16. My clinical findings support the need for the requested home health care services because: Deconditioned w/ increased weakness Limited ability to care for self High risk of falls I certify that my clinical findings support that this patient is homebound because: Unsteady gait/balance Frank Wang Apr 06, 2016 12:03
[2016-04-06] MEDS ORDERED: NORC5TAB PO (12:17)
[2016-04-06] MEDS ORDERED: ROBA500T PO (13:46)
[2016-04-06] MEDS ORDERED: LIDO5DIS35 TOPICAL (13:46)
--- NOTE | 2016-04-06 13:50 | HHI.DS ---
Discharge Summary Admission Date Apr 05, 2016 at 15:54 Discharge Date: Apr 06, 2016 Admitting Diagnosis TRAUMA, wrist fx, rib fx, acetabular fx Brief History S/P trauma: Fall from 20ft CBC/BMP: 04/06/16 0624 04/06/16 0624 Significant Findings Laboratory Tests Test 04/05/16 04/06/16 13:35 06:24 Red Blood Count 4.24 MIL/MM3 3.81 MIL/MM3 (4.50-5.90) (4.50-5.90) Monocytes (%) (Auto) 9.3 % (0.0-8.0) 13.8 % (0.0-8.0) Eosinophils (%) (Auto) 5.0 % (0.0-4.0) Activated Partial 19.8 SEC Thromboplast Time (24.3-30.1) Bedside Creatinine LESS THAN 0.2 MG/DL (0.8-1.3) Bedside Glucose 122 MG/DL (60-95) Hemoglobin 12.7 GM/DL (13.0-17.0) Hematocrit 36.0 % (39.0-51.0) Monocytes # (Auto) 1.1 TH/MM3 (0-0.9) Chloride Level 109 MEQ/L (98-107) Imaging Last Impressions Chest X-Ray 04/06/16 0000 Signed Impressions: Service Date/Time: Wednesday, April 06, 2016 07:44 - CONCLUSION: No acute disease. Eric Chase MD Abdomen/Pelvis CT 04/05/16 1501 Signed Impressions: Service Date/Time: Tuesday, April 05, 2016 15:03 - CONCLUSION: 1. There are acute fractures of the lateral aspects of left fifth and sixth ribs. There is also an acute fracture of the anterior aspect of the left acetabulum involving the anterior column which is nondisplaced. There is also an acute nondisplaced fracture involving the left medial iliac crest. 2. Markedly distended urinary bladder with some wall thickening. 3. Degenerative changes and scoliosis of the thoraco-lumbar spine. Donald Bledsoe MD Chest CT 04/05/16 1443 Signed Impressions: Service Date/Time: Tuesday, April 05, 2016 15:03 - CONCLUSION: 1. Granulomatous type calcification in the right middle lobe. 2. Otherwise negative. Jung Asher MD Pelvis X-Ray 04/05/161331 Signed Impressions: Service Date/Time: Tuesday, April 05, 2016 13:17 - CONCLUSION: No acute disease. Donald Bledsoe MD Head CT 04/05/161331 Signed Impressions: Service Date/Time: Tuesday, April 05, 2016 13:33 - CONCLUSION: No acute disease. Karl Quinn MD FACR Cervical Spine CT 04/05/161331 Signed Impressions: Service Date/Time: Tuesday, April 05, 2016 13:34 - CONCLUSION: 1. No acute fracture or prevertebral soft tissue swelling. 2. Cervical spondylosis at C3-4, C4-5, and C5-6. 3. Moderate left neural foraminal narrowing at C3-4 and mild to moderate bilateral foraminal narrowing at C4-5. 4. Mild diffuse disc osteophyte complexes at C3-4 and C4-5 and to a lesser extent at C5-6. Donald Bledsoe MD Wrist X-Ray 04/05/16 0000 Signed Impressions: Service Date/Time: Tuesday, April 05, 2016 13:17 - CONCLUSION: Acute displaced fracture involving the right distal radius. Donald Bledsoe MD Hip X-Ray 04/05/16 0000 Signed Impressions: Service Date/Time: Tuesday, April 05, 2016 15:12 - CONCLUSION: 1. Non-displaced left acetabulum fracture Gabe Medina MD PE at Discharge GENERAL: 65-year-old well-nourished, well developed male sitting out of bed in chair. SKIN: Warm and dry. ENT: No nasal bleeding or discharge. Mucous membranes pink and moist. NECK: Trachea midline. No JVD. CARDIOVASCULAR: Regular rate and rhythm. RESPIRATORY: No accessory muscle use. Lungs clear to auscultation. Breath sounds equal bilaterally. GASTROINTESTINAL: Abdomen soft, non-tender, nondistended. + BS. MUSCULOSKELETAL: Extremities without cyanosis, or edema. Right arm with soft splint in place. NEUROLOGICAL: Awake and alert. Normal speech. Hospital Course Fall from a 12 foot ladder. No LOC. Initial complaints of right wrist and left hip pain. INJURIES: LEFT Rib fxs (5, 6) LEFT acetabular fx & iliac crest (non-op) RIGHT distal radius fx (non-op) 2/10: RIGHT distal radius fx closed reduction PMHx: Prostate CA Diet: Regular Pulmonary: IS, Acapella, EZPAP. Pain: [place], Dilaudid. Lidoderm patch. Robaxin. Pain controlled. Activity: OOB. PT, OT ordered. (NWLesli RUViktor, WBAT BLE). Ambulating halls with physical therapy, recommendations for home PT. GI: IV Protonix Bowel: Anamaria-colace. DVT: SCD Plan of care discussed with patient and family at bedside. Follow-up with orthopedics as outpatient. Keep splint clean and dry. Case management consulted for discharge planning. DME ordered: Wheelchair, platform walker and wheeled walker. Patient is clear from trauma surgery standpoint to safely discharge home with home health care PT. Pt Condition on Discharge: Stable Discharge Disposition: Disch w/ Home Health Serv Discharge Instructions DIET: Follow Instructions for: As Tolerated, No Restrictions Activities you can perform: See Additionl Instruction Activities to Avoid: Concussion Sports, Contact Sports, Weight Bearing, Strenuous Activity Other Activity Instructions: Non-weight bearing right upper extremity. Weightbearing as tolerated bilateral lower extremities. Frank Wang Apr 06, 2016 13:50
[2016-04-06] MEDS: LIDOCAINE HCL 5% PATCH TD SCH (14:00)
[2016-04-06] MEDS: PANTOPRAZOLE SODIUM 40 MG VIAL IVP SCH (16:00)
[2016-04-06] MEDS ORDERED: REMOVE OLD PATCH T-DERMAL SCH (21:00)
[2016-04-06] MEDS ORDERED: ALPRAZolam 0.5 MG TAB PO ONE (22:15)
[2016-04-07] VITALS: BP 119/62; PULSE 62; RESP 18; TEMP 98.8; O2SAT 98
[2016-04-07] MEDS: ACETAMINOPHEN/HYDROcodone 325 MG/5 MG TAB PO PRN ×2 (06:39→13:34)
--- NOTE | 2016-04-07 07:38 | PD.ORT.PN ---
Subjective Subjective Remarks Pt standing at side of bed, accompanied by . He admits his right wrist pain and pelvic pain is well controlled. He is walking well with platform walker. No other complaints at this time. Objective Vitals Vital Signs Date Time Temp Pulse Resp B/P Pulse Ox O2 Delivery O2 Flow Rate FiO2 04/07/16 00:00 98.8 62 18 119/62 98 04/06/16 20:35 98.4 60 18 110/51 97 04/06/16 16:00 98.6 62 18 117/54 100 04/06/16 12:00 96.1 58 18 127/71 100 04/06/16 08:00 97.8 53 18 127/66 100 I/O 04/06/16 04/06/16 04/06/16 04/07/16 04/07/16 04/07/16 07:00 15:00 23:00 07:00 15:00 23:00 Intake Total 1315 ml 960 ml 720 ml 480 ml Output Total 1650 ml 600 ml Balance 1315 ml 960 ml -930 ml -120 ml Intake Oral 480 ml 960 ml 720 ml 480 ml IV Total 835 ml Output Urine Total 1650 ml 600 ml # Voids 1 4 # Bowel Movements 0 0 0 0 Result Diagram: 04/06/16 0624 04/06/16 0624 Imaging Last 48 hours Impressions Chest X-Ray 04/06/16 0000 Signed Impressions: Service Date/Time: Wednesday, April 06, 2016 07:44 - CONCLUSION: No acute disease. Eric Chase MD Abdomen/Pelvis CT 04/05/16 1501 Signed Impressions: Service Date/Time: Tuesday, April 05, 2016 15:03 - CONCLUSION: 1. There are acute fractures of the lateral aspects of left fifth and sixth ribs. There is also an acute fracture of the anterior aspect of the left acetabulum involving the anterior column which is nondisplaced. There is also an acute nondisplaced fracture involving the left medial iliac crest. 2. Markedly distended urinary bladder with some wall thickening. 3. Degenerative changes and scoliosis of the thoraco-lumbar spine. Donald Bledsoe MD Chest CT 04/05/16 1443 Signed Impressions: Service Date/Time: Tuesday, April 05, 2016 15:03 - CONCLUSION: 1. Granulomatous type calcification in the right middle lobe. 2. Otherwise negative. Jung Asher MD Pelvis X-Ray 04/05/161331 Signed Impressions: Service Date/Time: Tuesday, April 05, 2016 13:17 - CONCLUSION: No acute disease. Donald Bledsoe MD Head CT 04/05/161331 Signed Impressions: Service Date/Time: Tuesday, April 05, 2016 13:33 - CONCLUSION: No acute disease. Karl Quinn MD FACR Chest X-Ray 04/05/161331 Signed Impressions: Service Date/Time: Tuesday, April 05, 2016 13:17 - CONCLUSION: 1. Granuloma on the right. 2. Negative for pneumothorax. Karl Quinn MD FACR Cervical Spine CT 04/05/161331 Signed Impressions: Service Date/Time: Tuesday, April 05, 2016 13:34 - CONCLUSION: 1. No acute fracture or prevertebral soft tissue swelling. 2. Cervical spondylosis at C3-4, C4-5, and C5-6. 3. Moderate left neural foraminal narrowing at C3-4 and mild to moderate bilateral foraminal narrowing at C4-5. 4. Mild diffuse disc osteophyte complexes at C3-4 and C4-5 and to a lesser extent at C5-6. Donald Bledsoe MD Procedures Closed reduction right distal radius fx at [facility]. Objective Remarks The right upper extremity is in a sugar tong splint s/p closed reduction. This was left intact. He has mild swelling of the fingers. He is able to move the fingers without pain. He has good capillary refill and sensation. The patient does have mild discomfort with passive mobility of the left hip. The limb lengths are equal. He moves his toes and ankle freely and has good capillary refill and sensation. There are no other localizing signs of extremity injury. Assessment & Plan Problem List: (1) Fracture of distal end of right radius (2) Nondisplaced fracture of left acetabulum (3) Fracture of iliac crest (4) Ribs, multiple fractures Assessment and Plan Ortho status stable, right distal radius fracture, s/p closed reduction in ER, fx of iliac crest Nonoperative management Progress rehab, mobilize to tolerance with a platform walker Discharged from an orthopedic standpoint when medically stable and when pain is controlled - most likely today per pt. Follow with Dr Chauhan in 7-10 days. Trinity Dinero Apr 07, 2016 07:38
[2016-04-07 08:00] VITALS: BP 107/57; PULSE 65; RESP 18; TEMP 97.1; O2SAT 99
[2016-04-07] MEDS: DOCUSATE SODIUM 50 MG/SENNA 8.6 MG TAB PO SCH (08:34)
[2016-04-07] MEDS: LIDOCAINE HCL 5% PATCH TD SCH (08:35)
[2016-04-07 12:00] VITALS: BP 123/62; PULSE 64; RESP 18; TEMP 96.9; O2SAT 98
[2016-04-07] MEDS: PANTOPRAZOLE SODIUM 40 MG VIAL IVP SCH (15:24)
--- NOTE | 2016-04-07 15:41 | HHI.PR ---
Subjective Subjective Notes Discharged yesterday, awaiting walker Objective Vitals/I&O Vital Signs Date Time Temp Pulse Resp B/P Pulse Ox O2 Delivery O2 Flow Rate FiO2 04/07/16 12:00 96.9 64 18 123/62 98 04/05/16 18:00 Room Air 04/05/16 13:34 2.00 Narrative Exam GENERAL: 65-year-old well-nourished, well developed male sitting out of bed in chair. SKIN: Warm and dry. ENT: No nasal bleeding or discharge. Mucous membranes pink and moist. NECK: Trachea midline. No JVD. CARDIOVASCULAR: Regular rate and rhythm. RESPIRATORY: No accessory muscle use. Lungs clear to auscultation. Breath sounds equal bilaterally. GASTROINTESTINAL: Abdomen soft, non-tender, nondistended. + BS. MUSCULOSKELETAL: Extremities without cyanosis, or edema. Right arm with soft splint in place. NEUROLOGICAL: Awake and alert. Normal speech. A/P Assessment and Plan Fall from a 12 foot ladder. No LOC. Initial complaints of right wrist and left hip pain. INJURIES: LEFT Rib fxs (5, 6) LEFT acetabular fx & iliac crest (non-op) RIGHT distal radius fx (non-op) 04/05: RIGHT distal radius fx closed reduction PMHx: Prostate CA Diet: Regular Pulmonary: IS, Acapella, EZPAP. Pain: [place], Dilaudid. Lidoderm patch. Robaxin. Pain controlled. Activity: OOB. PT, OT ordered. (NWB RUE, WBAT BLE). Ambulating halls with physical therapy, recommendations for home PT. GI: IV Protonix Bowel: Anamaria-colace. DVT: SCD Plan of care discussed with patient and family at bedside. Follow-up with orthopedics as outpatient. Keep splint clean and dry. Case management consulted for discharge planning. DME ordered: Wheelchair, platform walker and wheeled walker. Discharged yesterday and still waiting on DME delivery. The exam, history, and the medical decision-making described in the above note were completed with the assistance of the mid-level provider. I reviewed and agree with the findings presented. I attest that I had a [id number] encounter with the patient on the same day, and personally performed and documented my assessment and findings in the medical record. Frank Wang Apr 07, 2016 15:41 Parish Friedman MD Apr 09, 2016 11:25
--- NOTE | 2016-04-08 08:36 | MH ---
cc: EAGLE MCCARTY MD DATE OF ADMISSION: 04/05/2016 CHIEF COMPLAINT Upgraded trauma alert, wrist fracture, acetabular fracture, rib fractures. HISTORY OF PRESENT ILLNESS The patient is a 65-year-old male who presents status post fall from 12 feet on a ladder. The patient was noted to fall on his right wrist and left hip. He is complaining of wrist and hip pain. He came to the emergency department initially by EMS. Given his injuries, age and mechanism of fall, concern was to upgrade for a trauma alert. The trauma team was called in and primary and secondary survey done. The patient noted to have a GCS of 15 and vital signs were stable. He was complaining of some pain on his left pelvis and his right wrist along with a deformity. He was answering questions appropriately. He was taken to CT scanner where there was confirmation of left fifth and sixth rib fractures and left medial iliac crest fracture along with a right wrist fracture confirmation. Therefore decision was made to admission to the orthopedic floor. PAST MEDICAL HISTORY 1. Prostate cancer. 2. UTI. 3. Hypercholesteremia. PAST SURGICAL HISTORY Hernia repair and prostatectomy. ALLERGIES PENICILLIN. FAMILY HISTORY Dad with CVA and prostate cancer along with CHF. Brother with [facility]. SOCIAL HISTORY The patient denies smoking, ETOH or IVDA. MEDICATIONS See EMR. REVIEW OF SYSTEMS GENERAL: The patient denies fever or chills. HEENT: Denies eye pain, ear pain. CHEST: Denies cough. Complained of some left-sided chest pain. CARDIAC: Denies palpitations, tachycardia. ABDOMEN: Denies nausea, vomiting. : Denies dysuria, hematuria. EXTREMITIES: Complained of right wrist pain and deformity. ENDOCRINE: Denies polyuria, polydipsia. INTEGUMENT: Denies obvious skin lesions or masses. PSYCHE: Denies change in mood or sensorium. NEUROLOGIC: Denies numbness or tingling. PHYSICAL EXAMINATION GENERAL: The patient is in no acute distress. HEENT: NCAT. Pupils equal, reactive. Moving pupils. Moist mucous membranes. NECK: C-collar in place. Trachea midline. LUNGS: Clear to auscultation bilaterally. Bilateral expansion. HEART: S1-S2, regular rhythm. ABDOMEN: Soft, nontender, nondistended. CHEST: Chest with mild tenderness to palpation on the left. PELVIS: Stable. EXTREMITIES: Right wrist deformity, 2+ palpable radial pulse. NEUROLOGIC: GCS of 15. Cranial nerves grossly intact. Moving all extremities. PSYCHE: Good judgment. Good insight. INTEGUMENT: No obvious masses or lesions. LABORATORY DIAGNOSTIC DATA WBC 7.6, hemoglobin 13.8, hematocrit 40.1, platelets 258. Sodium 140, potassium 3.6, chloride 103, BUN 15, creatinine 0.2, glucose 122, PT 10.2, INR 0.9, PTT 19.8. IMAGING Imaging reviewed by myself: CT head showed no evidence of fracture or hemorrhage. Chest x-ray showed granuloma on the right lung, no pneumothorax. CT chest showed granuloma with calcification right middle lobe. CT abdomen and pelvis showed acute fractures lateral fifth and sixth ribs, fracture of the anterior aspect of the left acetabulum anterior column nondisplaced, left medial iliac crest fracture. Pelvic x-ray negative for obvious fracture. Hip x-ray showed nondisplaced left acetabular fracture, Comminuted fracture of right distal radius on the right wrist x-ray. ASSESSMENT The patient is a 65-year-old male status post fall from ladder with distal radius fracture comminuted on the right, left acetabular fracture, left pelvic fracture, left two rib fractures. PLAN After full radiologic clinical laboratory workup the patient with above-named complaints including, the patient has a right wrist fracture that was reduced by the emergency department. Orthopedics is in consultation for further evaluation and possible operative intervention. We will do neuro checks on this, observe and wait for orthopedic recommendations. Also pelvic fractures appear nondisplaced, however, we will keep the patient on weight-bearing until okayed from orthopedics. The patient with two rib fractures. We will check a chest x-ray in the morning, continued pain control and deep breathing with incentive spirometry and continue to monitor this. Again, admit to surgical floor, continued observation, IV fluids. Will start diet if okay with orthopedics. MD RITU Pepper/KATERIN /4:04 PM /8:16 AM
[2016-04-24] MEDS ORDERED: MEGE20TA PO (09:29)
[2016-04-24] MEDS ORDERED: ALPR.25 PO (09:29)
[2016-04-24] MEDS ORDERED: SIMV20TA PO (09:29)
[2016-04-25] MEDS ORDERED: LUPR11.22 IM (06:47)
[2016-04-25] MEDS ORDERED: HYDR-3288 PO (09:43)
== END 2016-04-07 17:21 | disposition home health service (06) | DRG 536 ==
LOC: NEPI 13:07 → NEDA 15:54 → NEDH 17:40 → N06B 18:34
PROVIDERS: ADMIT Surgery; ATTEND Surgery
PROC: 0PSHXZZ Reposition Right Radius, External Approach (ICD-10-PCS; principal; 2016-04-05)
DX: S32.402A Unspecified fracture of left acetabulum, initial encounter for closed fracture (principal); S22.42XA Multiple fractures of ribs, left side, initial encounter for closed fracture; S52.501A Unspecified fracture of the lower end of right radius, initial encounter for closed fracture; S32.392A Other fracture of left ilium, initial encounter for closed fracture; E78.00 Pure hypercholesterolemia, unspecified; W11.XXXA Fall on and from ladder, initial encounter; Z85.46 Personal history of malignant neoplasm of prostate
CPT/HCPCS: 25605; 70450; 71010; 71260; 72125; 72170; 73100; 73110; 73502; 74177; 80048; 82435; 82565; 82947; 84132; 84295; 84520; 85025; 85610; 85730; 86850; 86900; 86901; 94150; 94640; 94667; 94668; 96361; 96374; 99152; 99153; C9113; J2270; J3010; J7030; L0150; Q9967

== ENCOUNTER → 2016-04-25 | Day surgery (SDC) | payer BC ==
[~2016-04-25] VITALS: Ht 172.7 cm; Wt 64.5 kg
[~2016-04-25] MED LIST changes: +*morphine SULFATE 8 MG/ML PERIprocedure ONLY ONE; +ACETAMINOPHEN 1000 MG/100 ML VIAL IV ONE; +ACETAMINOPHEN/HYDROcodone 325 MG/7.5 MG TAB PO PRN; +ALPR.25 PO; +BUPIVACAINE/EPINEPHRINE 0.25% PF 30 ML VIAL INFIL ONE; +CHLORHEXIDINE GLUCONATE 4% SOLN 120 ML BTL TOP SCH; +DO NOT ADM ANY ANTICOAGULANT DRUGS XX PRN; +FAMOTIDINE 20 MG/2 ML VIAL ONE; +GENTAMICIN SULFATE 80 MG/2 ML VIAL IRRIGATION ONE; +GENTAMICIN SULFATE 80 MG/2 ML VIAL ONE; +HYDR-3288 PO; +HYDROmorphone HCL PF 2 MG/ML VIAL ONE; +INSULIN HUMAN REGULAR 1,000 UNITS/10 ML VIAL SQ PRN; +KETOROLAC TROMETHAMINE 60 MG/2 ML (IM) VIAL IM ONE; +LACTATED RINGER'S 1000 ML INJ 1,000 ML IV ONE; +LACTATED RINGER'S 1000 ML IV SCH; +METOPROLOL TARTRATE 25 MG TAB PO PRN; +MIDAZOLAM HCL 2 MG/2 ML VIAL ONE; +MORPHINE SULFATE 4 MG/ML INJ IV PUSH PRN; +NORC5TAB PO; +ONDANSETRON HCL 4 MG/2 ML VIAL IV PUSH ONE; +PROPOFOL 200 MG/20 ML AMP IV ONE; +SODIUM CHLORID 0.9% 500 ML IV SCH; +VANCOMYCIN 1000 MG/NS 250 ML (for <70 kg) IV SCH; +ceFAZolin 2 GM PREMIX 50 ML IV SCH; +fentaNYL CITRATE 250 MCG/5 ML AMP ONE
[2016-04-25 06:50] VITALS: BP 107/64; PULSE 56; RESP 18; TEMP 98.5; O2SAT 98
--- NOTE | 2016-04-25 09:45 | PD.OP ---
cc: Domenico Stovall MD Operative Report Date of Surgery: Apr 25, 2016 Preoperative Diagnosis: Displaced right distal radius intra-articular fracture Postoperative Diagnosis: Procedure: Reduction internal fixation right distal radius fracture Anesthesia: Gen. Surgeon: Domenico Stovall Boatbuilder Apprentice Wood(s): VERO Palomino PA-C The surgical procedure was assisted by my physician physician assistant. My P.A. presence was necessary throughout this case for the manipulation and positioning of the surgical extremity. My P.A. was assisting me throughout the duration of this procedure. The skill set of a physician physician assistant was medically necessary to complete this procedure. During the surgical case the director medical surgical was working at the back table and the physician physician assistant was directly assisting me. Operation and Findings: Patient was seen and evaluated preoperatively and found to have a displaced intra-articular right distal radius fracture. Informed consent was obtained after detailed discussion of risk and benefits including bleeding, infection, injury to arteries, nerves, and blood vessels, weakness and numbness of hand, and tendon rupture. Informed consent was obtained. Patient received IV antibiotics prior to incision. Timeout procedure was performed. Operative extremity was prepped with alcohol followed by Hibiclens and draped usual sterile fashion. A standard volar approach to the distal radius was utilized. A 3 inch incision was made over the FCR tendon. Tendon sheath was opened. Pronator quadratus was elevated up. The fracture site was now visualized. The fracture did have intra-articular extension. There were 3 intra-articular fragments.. Traction was applied. The articular surface was reduced. Fracture fragments were manipulated to achieve excellent reduction. K wires were used to hold provisional fixation. Fluoroscopy confirmed appropriate alignment of fracture. A Synthes 2 column variable angle distal radius plate was selected. Plate was provisionally fixed to bone with K wires. 2.7 and 2.4 cortical screws were used to compress plate to bone. Fluoroscopy confirmed appropriate alignment of fracture with well-placed hardware. Multiple 2.4 locking screws were now placed distally. Screws were predrilled and measured for appropriate length. 2 additional screws were placed into the shaft. K wires were removed. Final fluoroscopy revealed excellent of fracture with well-placed hardware. The wound was thoroughly irrigated with sterile saline. Subcutaneous tissue was closed with 3-0 Vicryl and skin was closed with 3-0 nylon. Sterile dressings were applied with Xeroform, 4 x 4, soft roll, and a well padded volar splint. Patient was awakened and transferred to recovery room in stable condition Domenico Stovall MD Apr 25, 2016 09:45
[2016-04-25 11:45] VITALS: BP 127/62; PULSE 57; RESP 16; TEMP 98.1; O2SAT 100
--- NOTE | 2016-04-25 14:42 | RADRPT ---
EXAM DATE/TIME: 04/25/2016 09:01 [facility] COMPARISON: No previous studies available for comparison. INDICATIONS : Wrist fracture. MEDICAL HISTORY : None. SURGICAL HISTORY : None. ENCOUNTER: Subsequent ACUITY: 2 days PAIN SCORE: Non-responsive. LOCATION: Right wrist. FINDINGS: Three-view right wrist demonstrates the patient has had open reduction internal fixatio n of a distal radial fracture. The volar placed in excellent position. I do not see any obvious comp lications. CONCLUSION: Three-view right wrist demonstrates the patient has had open reduction internal fixat ion of a distal radial fracture. The volar placed in excellent position. I do not see any obvious co mplications. Figueroa Hopkins MD on April 25, 2016 at 14:03 Board Certified Radiologist. This report was verified electronically.
--- NOTE | 2016-04-25 23:39 | EKG ---
Date Performed: 04/25/2016 Time Performed: 06:59:43 PTAGE: 66 years EKG: SINUS BRADYCARDIA BORDERLINE ECG NO PREVIOUS TRACING DOCTOR: Anderson Trejo Interpretating Date/Time 04/25/2016 23:38:17
== END | disposition home or self-care (01) ==
LOC: HSDC 05:31
PROVIDERS: ATTEND Orthopaedic Surgery Orthopaedic Trauma
DX: S52.571A Other intraarticular fracture of lower end of right radius, initial encounter for closed fracture (principal); R94.31 Abnormal electrocardiogram [ECG] [EKG]; W11.XXXA Fall on and from ladder, initial encounter
CPT/HCPCS: 01830; 25609; 73100; 76000; 93005; C1713; J0131; J0690; J1580; J1885; J2250; J2270; J2405; J3010; J3370; J7050; J7120; J1170